=== PATIENT | female | born 1995 | race African-American/Black ===

== ENCOUNTER 2022-03-01 11:02 | Emergency (ER) | payer SELFPAY ==
[~2022-03-01] VITALS: Ht 167.6 cm; Wt 67.0 kg
[2022-03-01 12:47] LABS: BASOPHILS % 0.3 % (0.0-2.0); EOSINOPHILS % 0.1 % (0.0-5.0); HEMATOCRIT. 36.6 % (36.0-48.0); HEMOGLOBIN. 11.9 g/dL (12.0-16.0); LYMPHOCYTES % 21.6 % (20.0-50.0); MEAN CORPUSCULAR HEMOGLOBIN 25.1 pg (28.0-32.0); MEAN CORPUSCULAR VOLUME 76.9 fL (81.0-99.0); MEAN PLATELET VOLUME 7.3 fl (7.4-10.4); MONOCYTES % 4.9 % (2.0-8.0); NEUTROPHILS % 73.1 % (40.0-76.0); PLATELET 377 x1000/uL (130-400); RED BLOOD CELL COUNT 4.75 mill/uL (4.2-5.4); RED CELL DISTRIBUTION WIDTH 16.5 % (11.6-14.6)
[2022-03-01 12:55] LABS: CHLORIDE 105 mEq/L (98-107)
[2022-03-01 13:05] LABS: ETHANOL BLOOD < 10 mg/dL
[2022-03-01] MEDS ORDERED: MIDAZOLAM HCL 2 MG/2 ML VIAL IM ONE ×2 (13:30→19:00)
[2022-03-01] MEDS ORDERED: OLANZAPINE 10 MG/VIAL IM ONE (13:30)
[2022-03-01] MEDS ORDERED: HALOPERIDOL LACTATE 5MG/ML VIAL IM ONE (19:00)
[2022-03-01 23:10] VITALS: BP 120/70
== END 2022-03-01 19:15 | disposition home or self-care (01) ==
LOC: ER 11:02
DX: F30.9 Manic episode, unspecified (principal); F17.290 Nicotine dependence, other tobacco product, uncomplicated; F12.10 Cannabis abuse, uncomplicated
CPT/HCPCS: 36415; 80053; 80320; 85025; 96372; 99285; J1630; J2250; J3490; G0480